=== PATIENT | female | born 1970 ===

== ENCOUNTER 2021-11-08 16:29 | Inpatient (IN) | payer OTHER ==
--- OUTSIDE RECORDS SUMMARY | 2021-11-08 16:32 | XMS REPORT | Continuity of Care Document ---
:1970 Author Organization [facility] t Address [address] [place] [address] Care Team Providers Name Role Phone Francisco Julio Little Attending Clinician Unavailable Problems This patient has no known problems. Allergies, Adverse Reactions, Alerts This patient has no known allergies or adverse reactions. Medications This patient has no known medications. Procedures This patient has no known procedures. Encounters Start End Encounter Admission Attending Care Care Encounter Source Date/Time Date/Time Type Type Clinicians Facility Department ID 2021-10-30 Outpatient Francisco [facility] Julio [id number] [facility] 2021-10-30 Outpatient Singh, [facility] [id number] [facility] 12:51:22 Julio [id number] [facility] 2021-10-30 Outpatient Singh, [facility] [id number] [facility] 12:50:47 Julio [id number] [facility] 2021-10-30 Outpatient Francisco [facility] [id number] [facility] 12[facility]48:13 Julio [id number] [facility] 2021-10-30 Outpatient Singh, [facility] [id number] [facility] 12:25:37 Julio [id number] [facility] 2021-09-03 2021-09-03 ambulatory [facility] [id number] [facility] 2021-08-02 2021-08-02 Outpatient [facility] [id number] [facility] 2021-07-24 2021-07-24 Outpatient [facility] [id number] [facility] 2021-04-17 2021-04-17 Outpatient [facility] [id number] [facility] 2021-03-28 2021-03-28 Outpatient [facility] [id number] [facility] 2021-01-15 2021-01-15 Outpatient [facility] [id number] [facility] 2020-11-30 2020-11-30 Outpatient [facility] [id number] [facility] 2020-11-13 2020-11-13 Outpatient [facility] [id number] [facility] 2020-10-30 2020-10-30 Outpatient [facility] [id number] [facility] Results This patient has no known results.
[2021-11-08] MEDS ORDERED: LORazepam 2 MG/ML VIAL ONE (16:49)
--- NOTE | 2021-11-08 16:49 | RAD REPORT ---
EXAM DESCRIPTION: CT - Ct Stroke Brain Wo Cont - 11/08/2021 4:40 pm CLINICAL HISTORY: AMS Headache, drowsiness, CVA symptomology COMPARISON: No comparisons TECHNIQUE: All CT scans are performed using dose optimization technique as appropriate and may inclu de automated exposure control or mA/KV adjustment according to patient size. FINDINGS: The examination is mildly motion degraded. No intracranial hemorrhage, hydrocephalus or ex tra-axial fluid collection.No areas of brain edema or evidence of midline shift. The paranasal sinuses and mastoids are clear. The calvarium is intact. IMPRESSION: No acute intracranial abnormality. The findings were discussed with Dr Momin in the ER on 11/08/2021 at 4:35 p.m. by telephone.
[2021-11-08 17:01] LABS: Absolute Lymphocytes (CBC) 1.8 K/uL (0.7-4.9); Hematocrit 31.3 % (36.0-45.0); Lymphocytes % 31.4 % (15.3-44.8); MPV 8.2 fL (7.6-11.3)
[2021-11-08 17:11] LABS: Protime INR 0.97
[2021-11-08] MEDS ORDERED: ALTEPLASE 100 ML IV ONE (17:12)
--- NOTE | 2021-11-08 17:24 | RAD REPORT ---
EXAM DESCRIPTION: RAD - Chest Single View - 11/08/2021 5:17 pm CLINICAL HISTORY: AMS Chest pain. COMPARISON: No comparisons FINDINGS: Portable technique limits examination quality. Mild to moderate bilateral pulmonary opacities are noted suspicious for pneumonia. The heart is upper limit of normal in size. No displaced fractures.
[2021-11-08 17:25] LABS: Albumin 3.6 g/dL (3.4-5.0); Bilirubin Direct 0.2 mg/dL (0-0.2); Bilirubin Total 0.6 mg/dL (0.2-1.0); Potassium 3.5 mmol/L (3.5-5.1); Protein, Total 7.7 g/dL (6.4-8.2); Troponin High Sensitivity 5.1 pg/mL (<58.9)
[2021-11-08] MEDS ORDERED: FOLIC ACID 5 MG/ML VIAL ONE (18:04)
[2021-11-08 18:29] LABS: Urine Blood 1+ (Negative); Urine Glucose Negative (Negative); Urine Protein Negative (Negative); Urine Specific Gravity 1.015 (1.005-1.030); Urine pH 7.5 (5.0-7.0)
--- NOTE | 2021-11-08 18:53 | RAD REPORT ---
EXAM DESCRIPTION: CT - Head angio - 11/08/2021 6:32 pm CLINICAL HISTORY: MENTAL STATUS CHANGE Headache, drowsiness, CVA symptomology COMPARISON: Ct Stroke Brain Wo Cont dated 11/08/2021 TECHNIQUE: CT angiography of the head was performed with MIPs. All CT scans are performed using dose optimization technique as appropriate and may include automated exposure control or mA/KV adjustment according to patient size. FINDINGS: No evidence of aneurysm is detected. No flow-limiting stenosis or vascular malformation id entified. Antegrade flow is seen in the vertebral arteries. The vertebral arteries are codominant. The visualized dural venous sinuses are patent. IMPRESSION: No significant flow abnormality is detected.
--- NOTE | 2021-11-08 18:57 | RAD REPORT ---
EXAM DESCRIPTION: CT - Neck Angio - 11/08/2021 6:32 pm CLINICAL HISTORY: AMS Headache, drowsiness, CVA symptomology COMPARISON: No comparisons TECHNIQUE: CT angiography of the neck vessels was performed with MIPs. All CT scans are performed using dose optimization technique as appropriate and may include automated exposure control or mA/KV adjustment according to patient size. FINDINGS: A left aortic arch is identified with normal three vessel configuration of the great vesse ls. No significant flow abnormality is seen of the common carotid bilaterally. No significant stenosis is identified involving the cervical segments of both internal carotid arteri es. Normal flow is seen within both vertebral arteries. Several nonspecific but prominent submandibular lymph nodes are present bilaterally, largest on the l eft measuring 9 mm. IMPRESSION: No significant flow abnormality of the neck vessels is identified.
--- NOTE | 2021-11-08 19:10 | EDPHYS ---
Physician Documentation [facility] Name: David Shah Age: 51 yrs Sex: Female : 1970 Arrival Date: 11/08/2021 Time: 16:32 Bed 30 Private MD: ED Physician Thom Momin HPI: 11/08 16:47 This 51 yrs old Female presents to ER via EMS with complaints of Altered Mental Status. cp 16:47 The patient presents with decreased mental status. Onset: The symptoms/episode cp began/occurred 1.5 hour(s) ago. 16:47 Possible causes: unknown. cp 16:47 Patient's baseline: Neuro: alert and fully oriented, Motor: no deficits, Ambulation: cp walks without assistance, Speech: normal, The patient has a previous history of CVA. Unable to obtain HPI due to altered mental status. History obtained from son. Historical: - Allergies: 16:39 No Known Allergies; ll1 - PMHx: 16:39 Hypertensive disorder; stroke; ll1 - PSHx: 16:39 Unable to Obtain; ll1 - Immunization history:: Client reports receiving the 2nd dose of the Covid vaccine. - Social history:: Smoking status: Patient denies any tobacco usage or history of. ROS: 16:50 Constitutional: Negative for fever. cp 16:50 Neuro: Positive for altered mental status, weakness. 16:50 Unable to obtain ROS due to altered mental status. Exam: 16:52 ECG was reviewed by the Attending Physician. cp 16:55 Constitutional: The patient appears alert, awake, non-diaphoretic, non-toxic, well cp developed, well nourished. 16:55 Head/Face: Normocephalic, atraumatic. cp 16:55 Eyes: Periorbital structures: appear normal, Pupils: equal, round, and reactive to light and accomodation, Conjunctiva: normal, no exudate, no injection, Lids and lashes: appear normal, bilaterally. 16:55 ENT: External ear(s): are unremarkable, Nose: is normal, Mouth: Lips: moist, Oral mucosa: moist, Posterior pharynx: Airway: no evidence of obstruction, patent. 16:55 Neck: ROM/movement: Meningeal signs: are not present, nuchal rigidity, is not appreciated. 16:55 Chest/axilla: Inspection: normal. 16:55 Cardiovascular: Rate: tachycardic, Rhythm: regular, Edema: is not appreciated, JVD: is not appreciated. 16:55 Respiratory: the patient does not display signs of respiratory distress, Respirations: normal, no use of accessory muscles, no retractions, labored breathing, is not present, Breath sounds: are clear throughout, no decreased breath sounds, no stridor, no wheezing. 16:55 Abdomen/GI: Inspection: abdomen appears normal, Palpation: abdomen is soft and non-tender, in all quadrants. 16:55 Neuro: Mentation: able to follow commands, non-verbal, Motor: moves all fours, no focal deficits noted. Vital Signs: 16:37 BP 160 / 134; Pulse 103; Resp 18; Temp 98.1; Pulse Ox 100% ; Weight 70 kg; Height 5 ft. ll1 6 in. (167.64 cm); Pain 0/10; 16:54 BP 158 / 78; Pulse 81; Resp 16; Pulse Ox 100% ; ll1 17:51 BP 146 / 79; Pulse 90; Resp 16; Pulse Ox 99% ; ll1 18:29 BP 131 / 70; Pulse 86; Resp 15; Pulse Ox 100% on R/A; ll1 19:55 BP 145 / 83; Pulse 91; Resp 18; Pulse Ox 100% on R/A; tw5 11/09 19:44 BP 125 / 77; Pulse 80; Resp 18; Pulse Ox 98% on R/A; mk 11/08 16:37 Body Mass Index 24.91 (70.00 kg, 167.64 cm) ll1 NIH Stroke Scale Scores: 11/08 17:29 NIHSS Score: 14 cp [place] Coma Score: 11/09 19:44 Eye Response: spontaneous(4). Verbal Response: oriented(5). Motor Response: obeys mk commands(6). Total: 15. MDM: 11/08 16:46 Patient medically screened. cp 16:48 ED course: Patient evaluated by DR Momin. Patient non-verbal, able to follow cp commands. Patient moves all four extremities symmetrically and no asymmetric deficits noted on exam. Tongue protrudes w/o deviation. 17:27 Physician consultation: Prasanth Chavez MD was called at 17:25, was contacted at 17:25, cp regarding consult, patient's condition, neuro exam of patient with aphasia, weakness of upper and lower extremities. 19:08 Physician consultation: Prasanth Chavez MD was called at 19:08, was contacted at 19:08, cp regarding consult, patient's condition, would like admission per Dr. Kodak Shrestha. 19:10 Data reviewed: vital signs, nurses notes, lab test result(s), EKG, radiologic studies, cp CT scan, plain films, I have discussed the patient's presentation/case with the attending Emergency Department Physician; and as a result, I will admit patient. 11/08 16:36 Order name: Basic Metabolic Panel; Complete Time: 00:50 cp 11/08 17:27 Interpretation: Normal except: GLUC 112; GFR 75. cp 11/08 16:36 Order name: CBC with Diff; Complete Time: 17:26 cp 11/08 16:36 Order name: LFT's; Complete Time: 00:50 cp 11/08 16:36 Order name: Magnesium; Complete Time: 00:50 cp 11/08 16:36 Order name: NT PRO-BNP; Complete Time: 00:50 cp 11/08 16:36 Order name: PT-INR; Complete Time: 17:26 cp 11/08 16:36 Order name: Troponin HS; Complete Time: 00:50 cp 11/08 18:05 Order name: COVID-19/FLU A+B (Document "Date of Onset" if Symptomatic); Complete Time: cp 00:50 11/08 18:28 Order name: Urine Dipstick-Ancillary; Complete Time: 18:54 EDMS 11/09 04:19 Order name: CBC with Automated Diff EDMS 11/09 06:35 Order name: Comprehensive Metabolic Panel EDMS 11/09 06:35 Order name: Lipid Profile EDMS 11/09 06:35 Order name: T4 Free EDMS 11/09 06:35 Order name: Thyroid Stimulating Hormone EDMS 11/08 16:36 Order name: XRAY Chest (1 view); Complete Time: 17:26 cp 11/08 16:36 Order name: EKG; Complete Time: 16:37 cp 11/08 16:36 Order name: Cardiac monitoring; Complete Time: 16:45 cp 11/08 16:36 Order name: EKG - Nurse/Tech; Complete Time: 16:45 cp 11/08 16:37 Order name: IV Saline Lock; Complete Time: 16:40 cp 11/08 16:37 Order name: Labs collected and sent; Complete Time: 16:40 cp 11/08 16:37 Order name: O2 Per Protocol; Complete Time: 16:40 cp 11/08 16:37 Order name: CT Stroke Brain w/o Contrast; Complete Time: 17:26 cp 11/08 16:46 Order name: CT Head Angio; Complete Time: 19:05 cp 11/08 16:46 Order name: CT Neck Angio; Complete Time: 19:05 cp 11/09 09:38 Order name: US EDMS 11/09 14:44 Order name: CT EDMS 11/09 19:24 Order name: Magnesium EDMS 11/08 16:37 Order name: O2 Sat Monitoring; Complete Time: 16:40 cp 11/08 16:46 Order name: Urine Dipstick-Ancillary (obtain specimen); Complete Time: 18:28 cp 11/08 16:46 Order name: Urine Test (obtain specimen); Complete Time: 18:28 cp EC:52 Rate is 83 beats/min. Rhythm is regular. MI interval is normal. QRS interval is normal. cp QT interval is normal. T waves are Inverted in lead aVR. Interpreted by me. Reviewed by me. Administered Medications: 16:54 Drug: Ativan (LORazepam) 0.5 mg Route: IVP; Site: left antecubital; ll1 17:14 Follow up: Response: No adverse reaction ll1 17:36 Drug: ACTIvase (alteplase) {Co-Signature: ph (Lilibeth Gross RN).} {Note: Wasted 37 ml. ll1 6.3 ml bolus IV given, 56.7 ml infused over 60 minutes. .} Route: IV Thrombolytics; Rate: calculated rate; Infused Over: 60 mins; 18:29 Follow up: Response: No adverse reaction ll1 18:09 Drug: foLIC Acid 1 mg Route: IVPB; Site: left antecubital; ll1 Disposition: 19:30 Chart complete. cp 11/10 06:41 Co-signature as Attending Physician, Thom Momin MD I agree with the assessment and kdr plan of care. Disposition Summary: 11/08/21 19:09 Hospitalization Ordered Hospitalization Status: Inpatient Admission cp Provider: Buzombo, Henry cp Condition: Fair cp Problem: new cp Symptoms: have improved cp Bed/Room Type: Standard cp Location: Telemetry/MedSurg (Inpatient)(11/09/21 17:41) Room Assignment: 212(11/09/21 17:42) Diagnosis - Aphasia cp - Weakness cp Forms: - Medication Reconciliation Form cp - SBAR form cp NIH Stroke Scale - NIH Stroke Score Date: 11/08/2021 Time: 17:29 Total Score = 14 1a. Level of Consciousness (LOC) - 0(Alert) 1b. Level of Consciousness (LOC) (Month \\T\\ Age) - 2(Neither) 1c. LOC Commands (Open \\T\\ Closes Eyes/Palliative Medicine Physician) - 0(Both) 2. Best Gaze (Lateral Gaze Paresis) - 0(Normal) 3. Visual Field Loss - 0(No visual loss) 4. Facial Palsy - 0(Normal) 5a. Left Arm: Motor (10-second hold) - 2(Drift, some effort against gravity) 5b. Right Arm: Motor (10-second hold) - 2(Drift, some effort against gravity) 6a. Left Leg: Motor (5-second hold - always test supine) - 2(Drift, some effort against gravity) 6b. Right Leg: Motor (5-second hold - always test supine) - 2(Drift, some effort against gravity) 7. Limb Ataxia (finger/nose \\T\\ heel/de los santos - test with eyes open) - 0(Absent) 8. Sensory Loss (pinprick arms/legs/face) - 0(Normal) 9. Best Language: Aphasia (description/naming/reading) - 2(Severe aphasia) 10. Dysarthria (speech clarity - read or repeat words) - 2(Severe) 11. Extinction and Inattention (visual/tactile/auditory/spatial/personal) - 0(No abnormality) Initials: cp Signatures: Dispatcher [employer] EDMS Thom Momin MD MD [facility] Lashonda Boykin RN RN ss Kodak Shrestha, BAG INSPECTOR-C BAG INSPECTOR-Cla1 True Alarcon PA PA cp Marisel Coronado RN RN cg Rojas Correa RN RN ll1 Lilibeth Gross RN ph Corrections: (The following items were deleted from the chart) 11/08 20:11 19:09 Intensive Care Unit cp cg 20:11 19:09 cp cg 11/09 16:20 0204 16:55 Neuro: Mentation: confused, Motor: moves all fours, no focal cp deficits noted, cp 11/09 17:41 11/08 20:11 [facility] ER HOLD cg 11/09 17:41 11/08 20:11 ERHOLD- cg ss 11/09 17:42 17:41 225 ss
--- NOTE | 2021-11-08 19:10 | ER ---
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 Coronavirus screen: Vaccine status: Patient reports receiving the 2nd dose of the covid vaccine. Client denies travel out of the [place] in the last 14 days. At this time, the client does not indicate any symptoms associated with coronavirus-19. Ebola Screen: Patient denies travel to an Ebola-affected area in the 21 days before illness onset. Initial Sepsis Screen: Does the patient meet any 2 criteria? HR > 90 bpm. No. Patient's initial sepsis screen is negative. Does the patient have a suspected source of infection? No. Patient's initial sepsis screen is negative. Risk Assessment: Do you want to hurt yourself or someone else? Patient reports no desire to harm self or others. Onset of symptoms was November 08, 2021. 16:37 Method Of Arrival: EMS ll1 16:37 Acuity: FERNANDO 2 ll1 Triage Assessment: 16:40 General: Appears distressed, ill, Behavior is restless, uncooperative, unresponsive. ll1 Pain: Denies pain. 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 Moving all extremities.. Speech with expressive aphasia noted, Reports weakness Seizure activity jerking/spasms to body and extremities. Cardiovascular: No deficits noted. Respiratory: No deficits noted. GI: No deficits noted. Historical: - Allergies: 16:39 No Known Allergies; ll1 - PMHx: 16:39 Hypertensive disorder; stroke; ll1 - PSHx: 16:39 Unable to Obtain; ll1 - Immunization history:: Client reports receiving the 2nd dose of the Covid vaccine. - Social history:: Smoking status: Patient denies any tobacco usage or history of. Screenin:53 Abuse screen: Denies threats or abuse. Nutritional screening: No deficits noted. ll1 Tuberculosis screening: No symptoms or risk factors identified. Fall Risk IV access (20 points). Gait- Weak (10 pts.). Total Burks Fall Scale indicates Low Risk Score (25-44 pts). Fall prevention measures have been instituted. Side Rails Up X 2 Placed close to Nursing Station Frequent Obs/Assesments occuring Family Present and informed to notify staff if they need to leave bedside As available Patient and Family Educated on Fall Prevention Program and strategies. Assessment: 17:40 General: Appears distressed, Behavior is appropriate for age, crying, quiet. Neuro: ll1 Level of Consciousness is awake, Moved extremities per sons request and started to talk to him in her crow language. States she has no pain. . 18:10 Reassessment: Speaking to son in crow language. Said, "thank you" to me in Bulgarian. ll1 Following sons commands now. Helped to bedside commode, urinated without problems. Denies pain, just felt dizzy with position change. 18:40 Reassessment: Patient appears in no apparent distress at this time. Patient and/or ll1 family updated on plan of care and expected duration. Pain level reassessed. 19:55 General: Behavior is calm, cooperative, appropriate for age. Pain: Denies pain. Neuro: tw5 Level of Consciousness is awake, alert, obeys commands, Moves all extremities. Respiratory: Airway is patent Trachea midline Respiratory effort is Respiratory pattern is regular. : Urine is clear. Musculoskeletal: Range of motion: intact in all extremities. 19:55 General: Patient is able to ambulate to bedside commode without difficulty. She does tw5 state " my hands and feet are tingling." She also complains of mid dizziness.. 02/ 19:43 General: Appears distressed, Behavior is cooperative. Pain: Denies pain. Neuro: Level mk of Consciousness is awake, alert, obeys commands, Oriented to person, place, time, situation. Cardiovascular: Heart tones S1 S2 Capillary refill < 3 seconds in bilateral fingers toes Clubbing of nail beds is absent JVD is absent Patient's skin is warm and dry. Pulses are 2+ in right radial artery, right dorsalis pedis artery, left radial artery and left dorsalis pedis artery. Respiratory: Airway is patent Trachea midline Respiratory effort is even, unlabored, Respiratory pattern is regular, symmetrical. Musculoskeletal: Circulation, motion, and sensation intact. Capillary refill < 3 seconds, Range of motion: intact in all extremities. Vital Signs: 11/08 16:37 BP 160 / 134; Pulse 103; Resp 18; Temp 98.1; Pulse Ox 100% ; Weight 70 kg; Height 5 ft. ll1 6 in. (167.64 cm); Pain 0/10; 16:54 BP 158 / 78; Pulse 81; Resp 16; Pulse Ox 100% ; ll1 17:51 BP 146 / 79; Pulse 90; Resp 16; Pulse Ox 99% ; ll1 18:29 BP 131 / 70; Pulse 86; Resp 15; Pulse Ox 100% on R/A; ll1 19:55 BP 145 / 83; Pulse 91; Resp 18; Pulse Ox 100% on R/A; tw5 11/09 19:44 BP 125 / 77; Pulse 80; Resp 18; Pulse Ox 98% on R/A; mk 11/08 16:37 Body Mass Index 24.91 (70.00 kg, 167.64 cm) ll1 [place] Coma Score: 19:44 Eye Response: spontaneous(4). Verbal Response: oriented(5). Motor Response: obeys mk commands(6). Total: 15. NIH Stroke Scale Scores: 11/08 17:29 NIHSS Score: 14 cp ED Course: 16:32 Patient arrived in ED. iw 16:36 True Alarcon PA is PHCP. cp 16:36 Thom Momin MD is Attending Physician. cp 16:37 Rojas Correa RN is Primary Nurse. ll1 16:37 No provider procedures requiring assistance completed. Maintain EMS IV. Dressing ll1 intact. Good blood return noted. Site clean \\T\\ dry. Gauge \\T\\ site: 18 G L AC. 16:39 Triage completed. ll1 16:40 CT Stroke Brain w/o Contrast In Process Unspecified. EDMS 16:40 Arm band placed on Patient placed in an exam room, on a stretcher. ll1 16:40 Patient has correct armband on for positive identification. Bed in low position. Call ll1 light in reach. Side rails up X2. alarm security or surveillance monitor on. Pulse ox on. NIBP on. 17:16 XRAY Chest (1 view) In Process Unspecified. EDMS 17:40 Inserted saline lock: 22 gauge in right forearm, using aseptic technique. ll1 18:32 CT Head Angio In Process Unspecified. EDMS 18:32 CT Neck Angio In Process Unspecified. EDMS 19:09 Prince Andrade MD is Hospitalizing Provider. cp 19:43 COVID-19/FLU A+B (Document "Date of Onset" if Symptomatic) Sent. tw5 11/09 06:29 Primary Nurse role handed off by Rojas Correa RN eb 09:23 Klaudia Fish RN is Primary Nurse. eo2 09:24 Klaudia Fish RN is Primary Nurse. eo2 19:20 Primary Nurse role handed off by Klaudia Fish RN mw2 19:43 Anne Marie Johnson RN is Primary Nurse. 19:45 Patient admitted, IV remains in place. mk Administered Medications: 11/08 16:54 Drug: Ativan (LORazepam) 0.5 mg Route: IVP; Site: left antecubital; ll1 17:14 Follow up: Response: No adverse reaction ll1 17:36 Drug: ACTIvase (alteplase) {Co-Signature: ph (Lilibeth Gross RN).} {Note: Wasted 37 ml. ll1 6.3 ml bolus IV given, 56.7 ml infused over 60 minutes. .} Route: IV Thrombolytics; Rate: calculated rate; Infused Over: 60 mins; 18:29 Follow up: Response: No adverse reaction ll1 18:09 Drug: foLIC Acid 1 mg Route: IVPB; Site: left antecubital; ll1 Outcome: 19:09 Decision to Hospitalize by Provider. 11/09 19:45 Admitted to Tele accompanied by nurse, Report called to called by day shift RN marbella Condition: stable Instructed on the need for admit. 20:13 Patient left the ED. NIH Stroke Scale - NIH Stroke Score Date: 11/08/2021 Time: 17:29 Total Score = 14 1a. Level of Consciousness (LOC) - 0(Alert) 1b. Level of Consciousness (LOC) (Month \\T\\ Age) - 2(Neither) 1c. LOC Commands (Open \\T\\ Closes Eyes/Logistics Supervisor) - 0(Both) 2. Best Gaze (Lateral Gaze Paresis) - 0(Normal) 3. Visual Field Loss - 0(No visual loss) 4. Facial Palsy - 0(Normal) 5a. Left Arm: Motor (10-second hold) - 2(Drift, some effort against gravity) 5b. Right Arm: Motor (10-second hold) - 2(Drift, some effort against gravity) 6a. Left Leg: Motor (5-second hold - always test supine) - 2(Drift, some effort against gravity) 6b. Right Leg: Motor (5-second hold - always test supine) - 2(Drift, some effort against gravity) 7. Limb Ataxia (finger/nose \\T\\ heel/de los santos - test with eyes open) - 0(Absent) 8. Sensory Loss (pinprick arms/legs/face) - 0(Normal) 9. Best Language: Aphasia (description/naming/reading) - 2(Severe aphasia) 10. Dysarthria (speech clarity - read or repeat words) - 2(Severe) 11. Extinction and Inattention (visual/tactile/auditory/spatial/personal) - 0(No abnormality) Initials: cp Signatures: Dispatcher [employer] EDRoberta Montemayor RN RN iw True Alarcon, RAASH PA cp Ki Ambrocio mw2 Milla Felton Lynsay, RN RN ll1 Alexandra Horvath tw5 Klaudia Fish RN RN eo2 Anne Marie Johnson RN RN mk Lilibeth Gross RN ph
[2021-11-08 19:53] LABS: SARS-COV-2 RT PCR NEGATIVE (NEGATIVE)
--- NOTE | 2021-11-08 20:09 | P.HP ---
Certification for Inpatient Patient admitted to: Inpatient With expected LOS: >2 Midnights Patient will require the following post-hospital care: None Practitioner: I am a practitioner with admitting privileges, knowledge of patient current condition, hospital course, and medical plan of care. Services: Services provided to patient in accordance with Admission requirements found in Title 42 Section 412.3 of the Code of Federal Regulations Patient History Date of Service: 11/08/21 Reason for admission: Aphasia, left-sided weakness History of Present Illness: 51-year-old female with history of TIA, hypertension presents emergency department with aphasia, left-sided weakness. Family reports that around 1430 today after eating patient began experiencing left-sided facial droop, generalized weakness and difficulty with her speech. Patient was evaluated in the emergency department, case was discussed with neurology who did recommend patient received TPA after negative CT head brain without contrast. Labs were only significant for hemoglobin 10.6 medical 31 patient was Covid negative CT head and neck angio were performed which were negative for any acute findings, neurology recommends admission to ICU after receiving TPA and MRI be obtained which will have to take place on Thursday. Patient symptoms greatly improved at this time close to baseline just reports numbness tingling in all 4 extremities at this time. Will admit for further evaluation and management. - Past Medical/Surgical History -: Hypertension -: TIA -: None Psychosocial/ Personal History: Patient lives at home with her , children - Family History Mother -: Heart disease, Hypertension - Social History Smoking Status: Never smoker Alcohol use: No CD- Drugs: No Caffeine use: Yes Place of Residence: Home Review of Systems 10-point ROS is otherwise unremarkable Neurological: Weakness, Numbness, Change in Speech, As per HPI Physical Examination - Physical Exam General: Alert, In no apparent distress, Oriented x3 HEENT: Atraumatic, PERRLA, Mucous membr. moist/pink, EOMI, Sclerae nonicteric Neck: Supple, 2+ carotid pulse no bruit, No LAD, Without JVD or thyroid abnormality Respiratory: Clear to auscultation bilaterally, Normal air movement Cardiovascular: Regular rate/rhythm, Normal S1 S2 Gastrointestinal: Normal bowel sounds, No tenderness Musculoskeletal: No tenderness Integumentary: No rashes Neurological: Normal speech, Normal strength at 5/5 x4 extr, Normal tone, Normal affect, Abnormal sensation (Patient reports numbness/tingling in all 4 extremities) - Studies Laboratory Data (last 24 hrs) 11/08/21 16:40: PT 11.1, INR 0.97 11/08/21 16:40: WBC 5.60, Hgb 10.6 L, Hct 31.3 L, Plt Count 211 11/08/21 16:40: Sodium 138, Potassium 3.5, BUN 13, Creatinine 0.80, Glucose 112 H, Total Bilirubin 0.6, AST 21, ALT 27, Alkaline Phosphatase 65 Assessment and Plan - Plan Assessment: Aphasia, left-sided weaknessresolved rule out ischemic CVA, history of TIA Hypertension Plan: Aphasia, left-sided weaknessresolved rule out ischemic CVA, history of TIA: Patient received TPA in the emergency department CT head brain without contrast and head and neck angio negative for acute findings. Neurology has been consulted. Will need treatment ICU for 24 hours after TPA infusion. Will start aspirin, Plavix, Lovenox 24 hours after receiving TPA. Will allow for permissive hypertension overnight. Symptoms significantly resolved at this time. Will have patient evaluated by PT as well. MRI ordered but would not be able to be completed until Thursday. Hypertension: Obtain and continue medications as appropriate, will allow for permissive hypertension this evening. DVT PPX: Lovenox after 24 hours S/P TPA Code status: Full Discharge Plan: Home Plan to discharge in: Greater than 2 days - Advance Directives Does patient have a Living Will: No Does patient have a Durable POA for Healthcare: No - Code Status/Comfort Care Code Status Assessed: Yes (Full code) Critical Care: No Time Spent Managing Pts Care (In Minutes): 55
[2021-11-08 22:02] LABS: Magnesium 1.8
[2021-11-09] MEDS ORDERED: ONDANSETRON 4 MG/2 ML VIAL IV PRN (00:13)
[2021-11-09] MEDS ORDERED: ACETAMINOPHEN 500 MG TAB PO PRN (00:13)
[2021-11-09] MEDS ORDERED: NA CHLORIDE 0.9% 1,000 ML ONE ×2 (02:03→12:06)
[2021-11-09] MEDS ORDERED: ATORVASTATIN 20 MG TAB ONE (02:03)
[2021-11-09] MEDS: NA CHLORIDE 0.9% 1,000 ML IV SCH ×4 (02:05→21:35)
[2021-11-09] MEDS: ATORVASTATIN 40 MG TAB PO SCH ×2 (02:05→21:35)
[2021-11-09 02:21] VITALS: BMI 28.3
[2021-11-09 04:18] LABS: Absolute Lymphocytes (CBC) 1.5 K/uL (0.7-4.9); Hematocrit 30.8 % (36.0-45.0); Lymphocytes % 25.5 % (15.3-44.8); MPV 8.5 fL (7.6-11.3); RBC Red Blood Cell Count 3.65 M/uL (3.86-4.86)
[2021-11-09 06:35] LABS: Albumin 3.2 g/dL (3.4-5.0); Bilirubin Total 0.4 mg/dL (0.2-1.0); Potassium 3.3 mmol/L (3.5-5.1); Protein, Total 7.1 g/dL (6.4-8.2); Thyroid Stimulating Hormone 0.525 uIU/mL (0.360-3.740)
[2021-11-09] MEDS ORDERED: POTASSIUM CL 20 MEQ in NA CHLORIDE 0.9% 20 MEQ/100 ML BAG IV SCH (09:00)
[2021-11-09] MEDS ORDERED: KCL 20 MEQ/100 mL IVPB 100 ML IV ONE ×2 (09:36→13:32)
[2021-11-09] MEDS ORDERED: FOLIC ACID 1 MG TABLET ONE (09:36)
--- NOTE | 2021-11-09 09:37 | RAD REPORT ---
EXAM DESCRIPTION: USCarotid Artery Bilateral11/09/2021 1:36 am CLINICAL HISTORY: CVA COMPARISON: None FINDINGS: The velocity of the right internal carotid artery equals 93 cm/sec. The right ICA/CCA rati o 2 The velocity of the left internal carotid artery equals 108 cm/sec. The left ICA/CCA ratio 1.4 Mild plaque is present within the carotid arteries. The vertebral arteries demonstrate antegrade flow IMPRESSION: Mild plaque within the carotid arteries without evidence of a hemodynamically significan t stenosis NASCET criteria used. Mild 0-49% stenosis Moderate 50-69% stenosis Severe 70-99% stenosis
[2021-11-09] MEDS: FOLIC ACID 1 MG TABLET PO SCH (09:57)
[2021-11-09] MEDS: KCL 20 MEQ/100 mL IVPB 100 ML IV SCH ×2 (09:58→13:36)
--- NOTE | 2021-11-09 13:45 | P.PN ---
Subjective Date of Service: 11/09/21 Chief Complaint: Aphasia, left-sided weakness Subjective: Improving ( Patient's aphasia is nearly resolved. Son at bedside confirmed. She is working with PT. I was notified that she's getting weak) Physical Examination - Vital Signs Blood Pressure: 113/70 Pulse: 84 Respirations: 18 Pulse Ox (%): 98 - Physical Exam General: In no apparent distress, Cooperative HEENT: Atraumatic, Normocephalic Neck: Supple Respiratory: Clear to auscultation bilaterally, Normal air movement Cardiovascular: No edema, Normal pulses, Regular rate/rhythm, Normal S1 S2 Musculoskeletal: No clubbing, No swelling, No contractures, No erythema Neurological: Other (weakness) - Studies Laboratory Data (last 24 hrs) 11/08/21 16:40: PT 11.1, INR 0.97 11/08/21 16:40: WBC 5.60, Hgb 10.6 L, Hct 31.3 L, Plt Count 211 11/08/21 16:40: Sodium 138, Potassium 3.5, BUN 13, Creatinine 0.80, Glucose 112 H, Magnesium 1.8, Total Bilirubin 0.6, AST 21, ALT 27, Alkaline Phosphatase 65 Assessment And Plan - Current Problems (Diagnosis) (1) Acute CVA (cerebrovascular accident) Current Visit: Yes Status: Acute (2) TIA (transient ischemic attack) Current Visit: Yes Status: Acute (3) HTN (hypertension) Current Visit: Yes Status: Acute Physician Review Additional Text: 51-year-old female with a past medical history hypertension TIA. She is currently admitted for CVA work-up after she presented with acute aphasia and left-sided deficit. She received the TPA. Her neurologic symptoms is near baseline although she will occasionally have some decline. Her CTA did not show any hemodynamically stable lesion. Acute CVAsuspected Hypertension TIA Plan: A repeat CT head pending. MRI brain to be performed on Thursday Continue permissive hypertension We'll treat with high intensity statin and dual antiplatelet Neurology has been consulted on admission DVT ppx
--- NOTE | 2021-11-09 14:42 | RAD REPORT ---
EXAM DESCRIPTION: CT - Head Brain Wo Cont - 11/09/2021 2:18 pm CLINICAL HISTORY: CVA status post tPA COMPARISON: November 08, 2021 TECHNIQUE: Computed axial tomography of the head was obtained. IV contrast was not requested. All CT scans are performed using dose optimization technique as appropriate and may include automated exposure control or mA/KV adjustment according to patient size. FINDINGS: An intracranial bleed is not seen . The ventricles are normal in caliber. No extra-axial fluid collection is noted. Fluid within the sinuses/ mastoids is not seen. IMPRESSION: No acute intracranial abnormality is seen. If patient's symptoms persist MRI of the bra in would be recommended.
[2021-11-09] MEDS ORDERED: ALTEPLASE 100 MG/100 ML VIAL (For stroke) IV ONE (14:53)
[2021-11-09 20:42] VITALS: O2SAT 98
--- NOTE | 2021-11-10 02:34 | CON ---
Reason For Consultation: Consultation is called because of aphasic stroke with left-sided weakness. History Of Present Illness: Ms. Shah is a 51-year-old patient with hypertension, prior stroke and TI A, who comes to [facility] after difficulty expressing herself and left-sided weakness, onse t around 2:30 on the October 08. She was seen to have left facial drooping, although there was also generalized weakness with slurred speech and difficulty getting content of her speech out. She came to [facility] within the 4.5 hours for tPA and had a negative head CT scan and no contraind ications to tPA. Hemoglobin 10.6. She did receive tPA, and she did have some significant improvemen t in her symptoms following tPA and intact sensation in all of her extremities, especially on the lef t side and ability to express herself. She subsequently had a repeat head CT scan earlier today, whi ch showed no ischemic or hemorrhagic changes. Carotid artery ultrasound showed no evidence of hemody namically significant stenosis. It should be noted that following tPA, she had a head and neck CT an giogram that showed no significant abnormalities. Laboratory Studies: Showed essentially unremarkable complete blood count with differential aside fro m mildly low hemoglobin, hematocrit, INR 0.97. Chemistries showed mildly low potassium of 3.3 after hydration, initially was 3.5. Glucose ranged 112-173. Liver function studies were normal. LDL chol esterol 75, HDL 59, TSH 0.525, free T4 0.96. Urinalysis shows 1+ blood, pH 7.5, otherwise unremarkab le. COVID-19 test was negative. Chest x-ray showed [id number] bilateral pulmonary opacities n oted suspicious for pneumonia. Past Medical History: As noted. Family History: Heart disease, hypertension, mother. Social History: No alcohol, tobacco, or IV drug use. She does smoke caffeinated beverages. Allergies: NO KNOWN DRUG ALLERGIES. Medications: Aspirin 81 mg daily, Plavix 75 mg daily, Lipitor 40 mg at bedtime, folic acid 1 mg toñito y. It should be noted that the patient was not taking aspirin at the time of her stroke. She said s he was told to take an aspirin about every 15 days. Review of Systems: Aside from mentioned above, she denies any recent fevers, chills, nausea, vomiting, myalgias, arthral gias, rash, headache, weight change. No psychiatric complaints. No gastrointestinal or genitourinar y issues. Physical Examination: Vital Signs: Blood pressure 120/81, pulse 78, respiratory rate 16, temperature 98.7, oxygen saturati on 100% room air. Weight 154 pounds, height 5 feet 4 inches, BMI 26. General: Ms. Shah is resting in bed. She has her son at the bedside. HEENT: She is normocephalic, atraumatic. Sclerae anicteric. Oropharynx is moist and pink. Neck: Supple. Chest: Clear. Heart: Regular. Extremities: Show no edema, cyanosis, or clubbing. Neurological: She is alert and oriented to person, place, time, and situation. Speech, she is slow to communicate in [place], which I suspect is her primary language, but she does not have any difficu lty with labial, lingual or guttural sounds. Her cranial nerve exam revealed no deficits 2 through 1 2. Motor examination in the upper and lower extremities, perhaps subtle weakness in the left upper e xtremity and left lower extremity. However, at this point, right side is intact in terms of strength , sensation. Subtle difference in light touch, temperature in the left face, arm and leg compared to the right side. In addition to her slight sensory deficit, she does have an area of dysesthesia wit h tingling in the left lateral femoral cutaneous nerve distribution. Otherwise, reflexes symmetric. Coordination exam is unremarkable, and her gait, she will be ambulated with Physical Therapy and usi ng a gait belt. Assessment: Ms. Shah is a 51-year-old patient who has had stroke-like symptoms, received tPA with ve ry good resolution. Repeat CT scan shows no acute ischemic or hemorrhagic change 24 hours after, and she is on aspirin, Plavix, folic acid, statin. 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 The patient did say when lying on that side that is the left side, she would hav e that symptom of pain from the left hip into the left lateral thigh that does not go below the knee or to the medial back. Plan: 1.As indicated, continue medications as above. 2.Offload left lateral femoral cutaneous nerve. 3.She should be evaluated by Physical therapy for need to stratify her after stroke therapy that is to determine if outpatient physical therapy versus inpatient physical therapy would be required. 4.Once the patient is discharged from hospital, she should follow up in Dr. Chavez's clinic 1 danette h later. YONATHAN Voice ID: [id number] Report ID: [id number]
[2021-11-10 04:25] LABS: Absolute Lymphocytes (CBC) 1.6 K/uL (0.7-4.9); Hematocrit 31.2 % (36.0-45.0); Lymphocytes % 25.6 % (15.3-44.8); MPV 8.4 fL (7.6-11.3); RBC Red Blood Cell Count 3.68 M/uL (3.86-4.86)
[2021-11-10 05:17] LABS: ALT/SGPT 22 U/L (12-78); AST/SGOT 17 U/L (15-37); Albumin 3.1 g/dL (3.4-5.0); Alkaline Phosphatase 53 U/L (45-117); BUN Blood Urea Nitrogen 12 mg/dL (7-18); Bicarbonate 25 mmol/L (21-32); Bilirubin Total 0.4 mg/dL (0.2-1.0); Glucose Level 96 mg/dL (74-106); Potassium 3.8 mmol/L (3.5-5.1); Protein, Total 6.8 g/dL (6.4-8.2); Sodium Level 142 mmol/L (136-145)
[2021-11-10 05:44] LABS: Urine Appearance CLEAR (Clear); Urine Bilirubin NEGATIVE (Negative); Urine Blood TRACE (Negative); Urine Color YELLOW (Yellow); Urine Glucose NEGATIVE (Negative); Urine Protein NEGATIVE (Negative); Urine Specific Gravity <=1.005 (1.005-1.030); Urine Urobilinogen 0.2 mg/dL (0.2-1.0)
[2021-11-10 05:59] LABS: Urine Microscopic Reflex ORDER UMIC
[2021-11-10 06:08] LABS: Urine Bacteria <20 /HPF (<20); Urine RBC <5 /HPF (NONE SEEN)
[2021-11-10] MEDS: NA CHLORIDE 0.9% 1,000 ML IV SCH ×2 (07:08→16:47)
[2021-11-10] MEDS ORDERED: POTASSIUM CL SA 10 MEQ TAB PO ONE (09:00)
[2021-11-10] MEDS ORDERED: INFLUENZA VACCINE (for 6+ mo) 0.5 ML DOSE IMVAC ONE (09:00)
[2021-11-10] MEDS: ENOXAPARIN 40 MG/0.4 ML SQ SCH (09:07)
[2021-11-10] MEDS: CLOPIDOGREL 75 MG TABLET PO SCH (09:08)
[2021-11-10] MEDS: ASPIRIN EC 81 MG TAB PO SCH (09:08)
[2021-11-10] MEDS: FOLIC ACID 1 MG TABLET PO SCH (09:08)
--- NOTE | 2021-11-10 09:27 | P.PN ---
Subjective Date of Service: 11/10/21 Chief Complaint: Aphasia, left-sided weakness Subjective: Improving (She's having a mild headache) Physical Examination - Vital Signs Temperature: 97.3 F Blood Pressure: 123/67 Pulse: 66 Respirations: 17 Pulse Ox (%): 98 - Physical Exam General: In no apparent distress, Cooperative HEENT: Atraumatic, Normocephalic Neck: Supple Respiratory: Clear to auscultation bilaterally, Normal air movement Cardiovascular: No edema, Regular rate/rhythm, Normal S1 S2 Musculoskeletal: No clubbing, No swelling, No contractures Neurological: Normal speech, Normal affect Assessment And Plan - Current Problems (Diagnosis) (1) Acute CVA (cerebrovascular accident) Current Visit: Yes Status: Acute (2) TIA (transient ischemic attack) Current Visit: Yes Status: Acute (3) HTN (hypertension) Current Visit: Yes Status: Acute Physician Review Additional Text: 51-year-old female with a past medical history hypertension TIA. She is currently admitted for CVA work-up after she presented with acute aphasia and left-sided deficit. She received the TPA. Her neurologic symptoms is near baseline although she will occasionally have some decline. Her CTA did not show any hemodynamically stable lesion. Acute CVAsuspected Hypertension TIA Plan: Repeat CT head w/o ICH She is pending MRI brain tomorrow BP control Continue DAPT and high intensity statin Neurology has been consulted on admission Sumatriptan for headache PT before discharge DVT ppx
[2021-11-10] MEDS ORDERED: SUMATRIPTAN SUCC 6MG/0.5ML VIAL SQ ONE (10:00)
[2021-11-10 14:33] LABS: Magnesium 1.8
--- NOTE | 2021-11-10 14:46 | EKG ---
Test Date: 2021-11-08 Test Time: 16:47:06 Field Research Assistant: IVAN MEASUREMENT RESULTS: Intervals: Rate: 83 DC: 150 QRSD: 84 QT: 390 QTc: 458 Elliott: P: 74 DC: 150 QRS: 46 T: 48 INTERPRETIVE STATEMENTS: Normal sinus rhythm Normal ECG No previous ECG available for comparison Electronically Signed On 11-10-21 14:44:44 [employer] by Devante El
--- NOTE | 2021-11-10 15:53 | RAD REPORT ---
EXAM DESCRIPTION: RAD - Chest Single View - 11/10/2021 3:41 pm CLINICAL HISTORY: shortness of breath Chest pain. COMPARISON: Chest Single View dated 11/08/2021 FINDINGS: Portable technique limits examination quality. Interstitial lung markings are mildly prominent. This appears unchanged since prior study. The heart is normal in size. No displaced fractures. IMPRESSION: Stable viral infiltrate pattern suspected.
[2021-11-10 16:18] LABS: Arterial Blood Carboxyhemoglob 0.8 % (0-1.5); Blood Gas Oxyhemoglobin 94.5 % (94-97); Blood O2 Saturation 96.8 % (92-98.5)
[2021-11-10] MEDS: ATORVASTATIN 40 MG TAB PO SCH (23:59)
[2021-11-11] MEDS: NA CHLORIDE 0.9% 1,000 ML IV SCH (02:23)
[2021-11-11 05:55] LABS: Absolute Lymphocytes (CBC) 1.5 K/uL (0.7-4.9); Hematocrit 30.6 % (36.0-45.0); Lymphocytes % 31.1 % (15.3-44.8); MPV 8.3 fL (7.6-11.3); RBC Red Blood Cell Count 3.62 M/uL (3.86-4.86)
[2021-11-11 06:24] LABS: ALT/SGPT 22 U/L (12-78); AST/SGOT 18 U/L (15-37); Alkaline Phosphatase 54 U/L (45-117); BUN Blood Urea Nitrogen 10 mg/dL (7-18); Bicarbonate 25 mmol/L (21-32); Bilirubin Total 0.4 mg/dL (0.2-1.0); Glucose Level 98 mg/dL (74-106); Potassium 3.7 mmol/L (3.5-5.1); Protein, Total 6.6 g/dL (6.4-8.2); Sodium Level 142 mmol/L (136-145)
[2021-11-11] MEDS: ENOXAPARIN 40 MG/0.4 ML SQ SCH (08:41)
[2021-11-11] MEDS: ASPIRIN EC 81 MG TAB PO SCH (08:41)
[2021-11-11] MEDS: CLOPIDOGREL 75 MG TABLET PO SCH (08:42)
[2021-11-11] MEDS: FOLIC ACID 1 MG TABLET PO SCH (08:42)
[2021-11-11] MEDS ORDERED: POTASSIUM CL SA 10 MEQ TAB PO ONE (09:00)
[2021-11-11 09:42] VITALS: BP 151/71; TEMP 96.8
--- NOTE | 2021-11-11 09:42 | RAD REPORT ---
EXAM DESCRIPTION: MRI - Brain W/Wo Cont - 11/11/2021 8:36 am CLINICAL HISTORY: L weakness, S/P TPA Headache, drowsiness, CVA COMPARISON: MRA Head Wo Cont dated 11/11/2021 TECHNIQUE: Multi-sequence, multiplanar MR imaging of the brain was performed with contrast. FINDINGS: No intracranial hemorrhage, hydrocephalus, or extra-axial fluid collection.Minimal periven tricular chronic microvascular ischemic changes are present. No edema or shift of midline structures. No intracranial mass. DWI is negative for acute CVA. The midline structures are normally formed. Mastoid air cells and paranasal sinuses are clear. Post-contrast images show no abnormal enhancement to suggest tumor or infection. IMPRESSION: Negative for acute CVA or other acute intracranial finding. No pathologic post-contrast enhancement suspected.
--- NOTE | 2021-11-11 09:44 | RAD REPORT ---
EXAM DESCRIPTION: MRI - MRA Head Wo Cont - 11/11/2021 8:36 am CLINICAL HISTORY: L weakness, S/P TPA CVA COMPARISON: Head Brain Wo Cont dated 11/09/2021 FINDINGS: 3D noncontrast [id number] MR angiography of the [place] was performed. No aneurysm, flow-limiting stenosis or vascular malformation is seen. Forward flow seen in codominant vertebral arteries. The visualized dural venous sinuses appear patent. IMPRESSION: No significant flow abnormality of the [place] is identified.
--- NOTE | 2021-11-11 09:45 | RAD REPORT ---
EXAM DESCRIPTION: MRI - MRA Neck W/Wo Cont - 11/11/2021 8:36 am CLINICAL HISTORY: L weakness, S/P TPA Headache, drowsiness, CVA symptomology COMPARISON: No comparisons FINDINGS: Contrast enhance 2D [id number] MR angiography of the neck vessels was performed. A left aortic arch is present with normal origin pattern of the great vessels. Both subclavian arteries and common carotid arteries are widely patent. Internal carotid artery show no significant stenosis. Antegrade flow seen in both vertebral arteries which are mostly codominant. IMPRESSION: No significant flow abnormality of the neck vessels identified.
[2021-11-11 13:59] LABS: Magnesium 1.7
--- NOTE | 2021-11-11 14:14 | ECHO ---
HEIGHT: 5 ft 6 in WEIGHT: 154 lb 5.177 oz DATE OF STUDY: 11/11/[address]: Kodak Shrestha NP 2-DIMENSIONAL: YES M.MODE: YES DOPPLER: YES COLOR FLOW: YES TDS: NO PORTABLE: NO DEFINITY: NO BUBBLE STUDY: NO DIAGNOSIS: POSSIBLE CEREBRAL VASCULAR ACCIDENT CARDIAC HISTORY: CATHERIZATION: NO SURGERY: NO PROSTHETIC VALVE: NO PACEMAKER: NO MEASUREMENTS (cm) DIASTOLIC (NORMALS) SYSTOLIC (NORMALS) IVSd 1.0 (0.6-1.2) LA Diam 2.7 (1.9-4.0) LVEF 55-60% LVIDd 4.1 (3.5-5.7) LVIDs 2.5 (2.0-3.5) %FS 40% LVPWd 1.0 (0.6-1.2) Ao Diam 2.5 (2.0-3.7) 2 DIMENSIONAL ASSESSMENT: RIGHT ATRIUM: NORMAL LEFT ATRIUM: NORMAL RIGHT VENTRICLE: NORMAL LEFT VENTRICLE: NORMAL TRICUSPID VALVE: NORMAL MITRAL VALVE: NORMAL PULMONIC VALVE: NORMAL AORTIC VALVE: NORMAL PERICARDIAL EFFUSION: NONE AORTIC ROOT: NORMAL LEFT VENTRICULAR WALL MOTION: NORMAL. DOPPLER/COLOR FLOW: MILD TRICUSPID REGURGITATION. COMMENTS: NORMAL LEFT VENTRICULAR EJECTION FRACTION 55-60%. NORMAL DIASTOLIC FUNCTION. MILD TRICUSPID REGURGITATION. TECHNOLOGIST: MALIK GONZALEZ
--- NOTE | 2021-11-25 09:52 | P.DS ---
Discharge Date: 11/11/21 Disposition: ROUTINE DISCHARGE Discharge Condition: GOOD Reason for Admission: Aphasia, left-sided weakness Brief History of Present Illness: 51-year-old female with history of TIA, hypertension presents emergency department with aphasia, left-sided weakness. Family reports that around 1430 today after eating patient began experiencing left-sided facial droop, generalized weakness and difficulty with her speech. Patient was evaluated in the emergency department, case was discussed with neurology who did recommend patient received TPA after negative CT head brain without contrast. Labs were only significant for hemoglobin 10.6 medical 31 patient was Covid negative CT head and neck angio were performed which were negative for any acute findings, neurology recommends admission to ICU after receiving TPA and MRI be obtained which will have to take place on Thursday. Patient symptoms greatly improved at this time close to baseline just reports numbness tingling in all 4 extremities at this time. Will admit for further evaluation and management. Hospital Course: Patient's workup is been unremarkable. Patient had MRI of the brain that was unremarkable. Patient has been dealing with headaches and needs to follow with Neurology as an outpatient. 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 Carotid Doppler and echocardiogram were unremarkable. Patient stable for discharge home with outpatient follow-up. Vital Signs/Physical Exam: Temp Pulse Resp BP Pulse Ox 96.8 F 59 17 151/71 H 99 11/11/21 08:00 11/11/21 08:00 11/11/21 08:00 11/11/21 08:00 11/11/21 08:00 General: Alert, In no apparent distress, Oriented x3 Laboratory Data at Discharge: WBC 4.90 K/uL (4.3-10.9) D 11/11/21 05:25 Hgb 10.3 g/dL (12.0-15.0) L 11/11/21 05:25 Hct 30.6 % (36.0-45.0) L 11/11/21 05:25 Plt Count 216 K/uL (152-406) 11/11/21 05:25 PT 11.1 SECONDS (9.5-12.5) 11/08/21 16:40 INR 0.97 11/08/21 16:40 Sodium 142 mmol/L (136-145) 11/11/21 05:25 Potassium 3.7 mmol/L (3.5-5.1) 11/11/21 05:25 BUN 10 mg/dL (7-18) 11/11/21 05:25 Creatinine 0.55 mg/dL (0.55-1.3) 11/11/21 05:25 Glucose 98 mg/dL (74-106) 11/11/21 05:25 Magnesium 1.7 11/11/21 05:25 Total Bilirubin 0.4 mg/dL (0.2-1.0) 11/11/21 05:25 AST 18 U/L (15-37) 11/11/21 05:25 ALT 22 U/L (12-78) 11/11/21 05:25 Alkaline Phosphatase 54 U/L (45-117) 11/11/21 05:25 Triglycerides 38 mg/dL (<150) 11/09/21 03:51 Cholesterol 142 mg/dL (<200) 11/09/21 03:51 HDL Cholesterol 59 mg/dL (40-60) 11/09/21 03:51 Cholesterol/HDL Ratio 2.41 11/09/21 03:51 Home Medications: Vitamin B Complex [B Complex] 1 tab DAILY 11/08/21 Ascorbic Acid [C-1000] 1 cap DAILY 11/09/21 Ascorbic Acid [Vitamin C] 1 cap DAILY 11/09/21 Aspirin 1 tab DAILY 11/09/21 Atorvastatin Calcium 1 tab DAILY 11/09/21 Calcium Carbonate/Vitamin D3 [Caltrate 600 Plus D3 Tablet] 1 tab DAILY 11/09/21 Cholecalciferol (Vitamin D3) [Vitamin D3] 1 cap DAILY 11/09/21 Cholecalciferol (Vitamin D3) [Vitamin D3] 1 tab DAILY 11/09/21 Lisinopril [Zestril] 1 tab DAILY 11/09/21 Milk Thistle Seed Extract [Milk Thistle] 1 cap DAILY 11/09/21 Mupirocin Oint [Bactroban 2% Ointment*] 1 patrick DAILY 11/09/21 Atorvastatin Calcium [Lipitor] 40 mg PO BEDTIME #30 tab 11/11/21 Clopidogrel Bisulfate [Plavix*] 75 mg PO DAILY #30 tablet 11/11/21 New Medications: Atorvastatin Calcium [Lipitor] 40 mg PO BEDTIME #30 tab Clopidogrel Bisulfate [Plavix*] 75 mg PO DAILY #30 tablet Physician Discharge Instructions: -DC IV and DC home -Follow-up with PCP in 1 to 2 weeks -Follow-up with Neurology in 1 to 2 weeks -Please call Dr. Marsh at [phone] if any questions regarding hospital stay -Please call nursing station at [phone] if any nursing or medication questions -Return to the emergency room if symptoms worse Diet: AHA Activity: Fall precautions Followup: NONE,NONE [Primary Care Provider] - Time spent managing pt's care (in minutes): 35
== END 2021-11-11 15:51 | disposition home or self-care (01) | DRG 62 ==
LOC: ER 16:29 → ERHOLD 20:14 → 2ND 11-09 19:39
PROVIDERS: ADMIT Internal Medicine; ATTEND Internal Medicine
DX: I63.9 Cerebral infarction, unspecified (principal); G81.94 Hemiplegia, unspecified affecting left nondominant side; R47.01 Aphasia; R29.714 NIHSS score 14; N30.90 Cystitis, unspecified without hematuria; I10 Essential (primary) hypertension; Z86.73 Personal history of transient ischemic attack (TIA), and cerebral infarction without residual deficits; Z20.822 Contact with and (suspected) exposure to COVID-19
CPT/HCPCS: 0240U; 36415; 70450; 70496; 70498; 70544; 70549; 70553; 71045; 80048; 80053; 80061; 80076; 81003; 81015; 82805; 83735; 83880; 84439; 84443; 84484; 85025; 85610; 87077; 87086; 87088; 87186; 92977; 93005; 93306; 93880; 96374; 96375; 97112; 97116; 97162; 97530; 99291; 99292; A9577; J1650; J2997; J3030; J3480; J7030; Q9967